=== PATIENT | male | born 1985 | race Caucasian/White ===

== ENCOUNTER 2021-04-22 09:07 | Emergency (ER) | payer BC ==
[~2021-04-22 09:07] MED LIST: ACULAR 0.5%3 ML OPH; ALBUTEROL0.09 MG/A2 INH; AUGMENTIN 875 M1 TAB PO; BACTRIM DS 8001 TA1 PO; CIPRODEX 0.3%-7.5 ML OT; CYCLOBENZAPRINE10 MG PO; FLEXERIL10 MG PO; HYDROCODONE BIT1 T11 PO; IBU600 MG PO; IBUPROFEN600 MG PO; NORCO 325 MG-51 TAB PO; OMEPRAZOLE20 M1 PO; TESSALON PERLE200 MG PO; TOBREX OPHTH S2.5 ML OPH; TRAMADOL HCL50 MG PO; ZANTAC150 MG PO; ZITHROMAX Z PA250 MG PO; ZOFRAN ODT4 MG SL; ZOFRAN4 MG PO; Zofran4 MG PO
[2021-04-22 09:57] LABS: HEMATOCRIT 46.4 % (42.0-52.0); MEAN CELL VOLUME 88.7 fl (80.0-94.0); MEAN CORPUSCULAR HGB 29.8 pg (27.0-31.0); MEAN CORPUSCULAR HGB CONC 33.6 g/dl (33.0-37.0); PLATELET COUNT AUTOMATED 305 10*3/uL (130-400); RED BLOOD COUNT 5.23 10*6/uL (4.50-5.90); RED CELL DISTRI WIDTH 12.4 % (0-14.5); WHITE BLOOD COUNT 11.1 10*3/uL (4.8-10.8)
[2021-04-22 10:14] LABS: ALBUMIN 5.1 gm/dl (3.1-4.5); ALKALINE PHOSPHATASE 69 U/L (45-117); BUN 26 mg/dl (7-24); CHLORIDE 102 mmol/L (98-107); CREATININE 1.26 mg/dL (0.70-1.30); LIPASE 54 U/L (73-393); POTASSIUM 4.3 mmol/L (3.5-5.1); SGOT/AST 29 IU/L (3-35); SGPT/ALT 60 U/L (12-78); SODIUM 133 mmol/L (136-145); TOTAL PROTEIN 9.2 gm/dL (6.4-8.2)
[2021-04-22 10:25] LABS: PLATELET SUFFICIENCY NORMAL (NORMAL); TOTAL CELLS COUNTED 100 #CELLS
[2021-04-22] MEDS ORDERED: ZOFRAN4 MG PO (12:49)
[2021-04-22] MEDS ORDERED: PEPCID20 MG PO (12:49)
[2021-04-26] MEDS ORDERED: METOCLOPRAMIDE H5 M1 PO (15:21)
== END 2021-04-22 13:11 | disposition home or self-care (01) ==
LOC: ED 09:07
PROVIDERS: Emergency Medicine
DX: R11.2 Nausea with vomiting, unspecified (principal); F17.200 Nicotine dependence, unspecified, uncomplicated

== ENCOUNTER 2021-04-22 21:01 | Emergency (ER) | payer BC ==
[~2021-04-22] VITALS: Ht 180.3 cm; Wt 63.5 kg
[~2021-04-22 21:01] MED LIST changes: +PEPCID20 MG PO
[2021-04-26] MEDS ORDERED: METOCLOPRAMIDE H5 M1 PO (15:21)
== END 2021-04-23 03:15 | disposition left against medical advice (07) ==
LOC: ED 21:01
DX: R11.2 Nausea with vomiting, unspecified (principal); Z20.822 Contact with and (suspected) exposure to COVID-19

== ENCOUNTER 2021-11-21 10:38 | Emergency (ER) | payer BC ==
[~2021-11-21] VITALS: Ht 180.3 cm; Wt 68.0 kg
[~2021-11-21 10:38] MED LIST changes: +METOCLOPRAMIDE H5 M1 PO
[2021-11-21] MEDS ORDERED: NAPROXEN250 MG PO (12:02)
[2021-11-21] MEDS ORDERED: TYLENOL325 M1 PO (12:02)
== END 2021-11-21 12:06 | disposition home or self-care (01) ==
LOC: ED 10:38
DX: S62.001A Unspecified fracture of navicular [scaphoid] bone of right wrist, initial encounter for closed fracture (principal); F17.210 Nicotine dependence, cigarettes, uncomplicated; Z79.899 Other long term (current) drug therapy; V00.131A Fall from skateboard, initial encounter; Y93.51 Activity, roller skating (inline) and skateboarding; Y92.89 Other specified places as the place of occurrence of the external cause; Y99.8 Other external cause status

== ENCOUNTER → 2021-12-01 | Outpatient (CLI) | payer BC ==
[~2021-12-01] MED LIST changes: +NAPROXEN250 MG PO; +TYLENOL325 M1 PO
== END | disposition home or self-care (01) ==
LOC: CT 10:55
PROVIDERS: ATTEND Orthopaedic Surgery
DX: S62.024A Nondisplaced fracture of middle third of navicular [scaphoid] bone of right wrist, initial encounter for closed fracture (principal); X58.XXXA Exposure to other specified factors, initial encounter; Y93.89 Activity, other specified; Y92.89 Other specified places as the place of occurrence of the external cause; Y99.8 Other external cause status

== ENCOUNTER → 2021-12-12 | Outpatient (CLI) | payer BC | END | disposition home or self-care (01) | LOC: ORTHO 01:18 | PROVIDERS: ATTEND Orthopaedic Surgery | DX: S62.024D Nondisplaced fracture of middle third of navicular [scaphoid] bone of right wrist, subsequent encounter for fracture with routine healing (principal); X58.XXXD Exposure to other specified factors, subsequent encounter ==

== ENCOUNTER → 2022-01-02 | Outpatient (CLI) | payer BC | END | disposition home or self-care (01) | LOC: ORTHO 01:53 | PROVIDERS: ATTEND Orthopaedic Surgery | DX: S62.024D Nondisplaced fracture of middle third of navicular [scaphoid] bone of right wrist, subsequent encounter for fracture with routine healing (principal); X58.XXXD Exposure to other specified factors, subsequent encounter ==

== ENCOUNTER → 2022-01-30 | Outpatient (CLI) | payer BC | END | disposition home or self-care (01) | LOC: ORTHO 00:42 | PROVIDERS: ATTEND Orthopaedic Surgery | DX: S62.024D Nondisplaced fracture of middle third of navicular [scaphoid] bone of right wrist, subsequent encounter for fracture with routine healing (principal); X58.XXXD Exposure to other specified factors, subsequent encounter ==

== ENCOUNTER → 2022-02-27 | Outpatient (CLI) | payer BC | END | disposition home or self-care (01) | LOC: ORTHO 11:32 → RAD 11:32 | PROVIDERS: ATTEND Orthopaedic Surgery | DX: S62.101A Fracture of unspecified carpal bone, right wrist, initial encounter for closed fracture (principal); X58.XXXA Exposure to other specified factors, initial encounter; Y93.89 Activity, other specified; Y92.89 Other specified places as the place of occurrence of the external cause; Y99.8 Other external cause status ==

== ENCOUNTER 2023-10-12 19:01 | Emergency (ER) | payer BC ==
[~2023-10-12] VITALS: Ht 180.3 cm; Wt 83.9 kg
[2023-10-12] MEDS ORDERED: Metoclopramide Hydrochloride 10 MG/2 ML AMP IV ONE (19:25)
[2023-10-12] MEDS ORDERED: SODIUM CHLORIDE 0.9% 1,000 ML IV ONE ×2 (19:25→22:37)
[2023-10-12] MEDS ORDERED: Pantoprazole Sodium 40 MG VIAL IV ONE (19:30)
[2023-10-12 20:00] LABS: BASO # 0.1 10*3/uL (0.0-0.1); BASO % 0.3 % (0.0-1.0); EOS % 0.1 % (1.0-4.0); HEMATOCRIT 50.2 % (42.0-52.0); LYMPH # 0.5 10*3/uL (1.3-4.4); LYMPH % 2.9 % (27.0-41.0); MEAN CELL VOLUME 89.6 fl (80.0-94.0); MEAN CORPUSCULAR HGB 30.9 pg (27.0-31.0); MEAN CORPUSCULAR HGB CONC 34.5 g/dl (33.0-37.0); MEAN PLATELET VOLUME 10.1 fl (9.6-12.3); MONO # 1.2 10*3/uL (0.1-1.0); MONO % 6.9 % (3.0-9.0); NEUT # 15.5 10*3/uL (2.3-7.9); NEUT % 89.3 % (47.0-73.0); PLATELET COUNT AUTOMATED 350 10*3/uL (130-400); RED CELL DISTRI WIDTH 13.1 % (0-14.5); WHITE BLOOD COUNT 17.3 10*3/uL (4.8-10.8)
[2023-10-12] MEDS ORDERED: Ondansetron Hydrochloride 4 MG/2 ML VIAL IV ONE (20:15)
[2023-10-12 20:18] LABS: ALKALINE PHOSPHATASE 108 U/L (46-116); BUN 17 mg/dl (9-23); CHLORIDE 105 mmol/L (98-107); LIPASE 29 U/L (12-53); POTASSIUM 4.3 mmol/L (3.4-5.1); SGPT/ALT 110 U/L (5-49); TOTAL PROTEIN 8.7 gm/dL (6.0-8.0)
[2023-10-12] MEDS ORDERED: HYDROmorphONE Hydrochloride 1 MG/ML SYR IV ONE (22:25)
[2023-10-13 00:12] LABS: BILIRUBIN Negative (Negative); BLOOD 1+ (Negative); CLARITY Clear (Clear); COLOR Yellow (Yellow); GLUCOSE Negative (Negative); KETONE 4+ (Negative); LEUKO ESTERASE Negative (Negative); NITRITE Negative (Negative); SPECIFIC GRAVITY >= 1.030 (1.001-1.030)
[2023-10-13 00:40] LABS: URINE AMPHETAMINES Negative (1000ng/ml); URINE BARBITURATES Negative (200ng/ml); URINE BENZODIAZEPINES Negative (200ng/ml); URINE CANNABINOIDS (THC) Positive (50ng/ml); URINE COCAINE Positive (300ng/ml); URINE METHADONE Negative (300ng/ml); URINE OPIATES Positive (300ng/ml); URINE PHENCYCLIDINE Negative (25ng/ml)
[2023-10-13] MEDS ORDERED: Promethazine Hydrochloride 25 MG/ML VIAL IM ONE (01:10)
[2023-10-13 01:19] LABS: YEAST TRACE
[2023-10-13] MEDS ORDERED: Ondansetron Hydrochloride 4 MG TAB SL ONE (01:50)
== END 2023-10-13 01:44 | disposition home or self-care (01) ==
LOC: ED 19:01
PROVIDERS: Emergency Medicine
DX: R11.2 Nausea with vomiting, unspecified (principal); R74.01 Elevation of levels of liver transaminase levels; K76.0 Fatty (change of) liver, not elsewhere classified; K29.70 Gastritis, unspecified, without bleeding; E87.1 Hypo-osmolality and hyponatremia; F17.210 Nicotine dependence, cigarettes, uncomplicated

== ENCOUNTER 2023-10-15 01:02 | Emergency (ER) | payer BC ==
[~2023-10-15] VITALS: Ht 180.3 cm; Wt 83.9 kg
[2023-10-15] MEDS ORDERED: Ondansetron Hydrochloride 4 MG/2 ML VIAL IV ONE (01:45)
[2023-10-15] MEDS ORDERED: Ketorolac Tromethamine 30 MG/ML VIAL IV ONE (01:45)
[2023-10-15] MEDS ORDERED: LORazepam 2 MG/ML VIAL IV ONE (01:45)
[2023-10-15] MEDS ORDERED: SODIUM CHLORIDE 0.9% 1,000 ML IV ONE (01:45)
[2023-10-15] MEDS ORDERED: Ondansetron4 MG PO (03:41)
== END 2023-10-15 03:57 | disposition home or self-care (01) ==
LOC: ED 01:02
DX: R11.2 Nausea with vomiting, unspecified (principal); R10.10 Upper abdominal pain, unspecified; F12.10 Cannabis abuse, uncomplicated; F17.210 Nicotine dependence, cigarettes, uncomplicated

== ENCOUNTER 2024-06-20 05:57 | Emergency (ER) | payer BC ==
[~2024-06-20] VITALS: Ht 180.3 cm; Wt 96.3 kg
[~2024-06-20 05:57] MED LIST changes: +Ondansetron4 MG PO
[2024-06-20] MEDS ORDERED: SODIUM CHLORIDE 0.9% 1,000 ML IV ONE (06:10)
[2024-06-20] MEDS ORDERED: Ondansetron Hydrochloride 4 MG/2 ML VIAL IV ONE ×3 (06:10→10:10)
[2024-06-20] MEDS ORDERED: diazePAM 10 MG/2 ML SYR IV ONE (06:10)
[2024-06-20 06:48] LABS: HEMATOCRIT 50.4 % (42.0-52.0); MEAN CELL VOLUME 97.7 fl (80.0-94.0); MEAN CORPUSCULAR HGB 32.8 pg (27.0-31.0); MEAN CORPUSCULAR HGB CONC 33.5 g/dl (33.0-37.0); MEAN PLATELET VOLUME 10.1 fl (9.6-12.3); PLATELET COUNT AUTOMATED 276 10*3/uL (130-400); RED BLOOD COUNT 5.16 10*6/uL (4.50-5.90); RED CELL DISTRI WIDTH 12.3 % (0-14.5); WHITE BLOOD COUNT 15.3 10*3/uL (4.8-10.8)
[2024-06-20 06:52] LABS: MANUAL DIFF REFLEX YES
[2024-06-20 07:11] LABS: ALKALINE PHOSPHATASE 80 U/L (46-116); BUN 13 mg/dl (9-23); CHLORIDE 103 mmol/L (98-107); LIPASE 30 U/L (12-53); POTASSIUM 3.9 mmol/L (3.4-5.1); SGPT/ALT 86 U/L (5-49); TOTAL PROTEIN 8.1 gm/dL (6.0-8.0)
[2024-06-20 07:28] LABS: PLATELET SUFFICIENCY NORMAL (NORMAL); POLYCHROMASIA SLIGHT; TOTAL CELLS COUNTED 100 #CELLS
[2024-06-20] MEDS ORDERED: FAMOTIDINE 50 ML IV ONE (07:35)
[2024-06-20] MEDS ORDERED: Ketorolac Tromethamine 15 MG/ML VIAL IV ONE (07:35)
[2024-06-20] MEDS ORDERED: Ondansetron4 MG PO (07:36)
[2024-06-20] MEDS ORDERED: Metoclopramide Hydrochloride 10 MG/2 ML VIAL IV ONE (09:05)
[2024-06-20] MEDS ORDERED: diphenhydrAMINE hydrochloride 50 MG/ML VIAL IV ONE (09:05)
[2024-06-20] MEDS ORDERED: Haloperidol Lactate 5 MG/ML AMP IM ONE (10:10)
== END 2024-06-20 10:44 | disposition home or self-care (01) ==
LOC: ED 05:57
PROVIDERS: Internal Medicine
DX: R11.2 Nausea with vomiting, unspecified (principal); R10.10 Upper abdominal pain, unspecified; F17.210 Nicotine dependence, cigarettes, uncomplicated

== ENCOUNTER 2024-07-15 15:32 | Emergency (ER) | payer BC ==
[~2024-07-15] VITALS: Ht 180.3 cm; Wt 90.7 kg
== END 2024-07-15 16:36 | disposition left against medical advice (07) ==
LOC: ED 15:32
DX: R11.2 Nausea with vomiting, unspecified (principal); Z53.21 Procedure and treatment not carried out due to patient leaving prior to being seen by health care provider

== ENCOUNTER 2024-10-17 11:29 | Emergency (ER) | payer BC ==
[~2024-10-17] VITALS: Ht 180.3 cm; Wt 77.1 kg
[2024-10-17] MEDS ORDERED: diphenhydrAMINE hydrochloride 50 MG/ML VIAL IV ONE (12:15)
[2024-10-17] MEDS ORDERED: Metoclopramide Hydrochloride 10 MG/2 ML VIAL IV ONE (12:15)
[2024-10-17 13:05] LABS: BUN 11 mg/dl (9-23)
[2024-10-17 13:08] LABS: ETHYL ALCOHOL < 3.0 mg/dl (<3)
[2024-10-17 13:33] LABS: BASO # 0.1 10*3/uL (0.0-0.1); BASO % 0.3 % (0.0-1.0); EOS # 0.0 10*3/uL (0.0-0.4); EOS % 0.1 % (1.0-4.0); MEAN CELL VOLUME 92.3 fl (80.0-94.0); MEAN CORPUSCULAR HGB 31.8 pg (27.0-31.0); MEAN PLATELET VOLUME 10.3 fl (9.6-12.3); MONO # 0.9 10*3/uL (0.1-1.0); MONO % 5.6 % (3.0-9.0); NEUT # 14.9 10*3/uL (2.3-7.9); NEUT % 89.4 % (47.0-73.0); NUCLEATED RED BLOOD CELL 0.0 % (0.0-0.0); NUCLEATED RED BLOOD CELL 0.0 10*3/uL (0.0-0.0); PLATELET COUNT AUTOMATED 365 10*3/uL (130-400); RED CELL DISTRI WIDTH 12.1 % (0-14.5)
[2024-10-17 13:48] LABS: BILIRUBIN 1+ (Negative); BLOOD Negative (Negative); CLARITY Cloudy (Clear); COLOR Dark Yellow (Yellow); KETONE 3+ (Negative); LEUKO ESTERASE Trace (Negative); NITRITE Negative (Negative); PH 6.0 (4.5-8.0); SPECIFIC GRAVITY >= 1.030 (1.001-1.030); UROBILINOGEN 1.0 E.U./dl (0.0-1.0)
[2024-10-17 13:56] LABS: URINE AMPHETAMINES Negative (1000ng/ml); URINE BARBITURATES Negative (200ng/ml); URINE BENZODIAZEPINES Negative (200ng/ml); URINE CANNABINOIDS (THC) Positive (50ng/ml); URINE COCAINE Positive (300ng/ml); URINE METHADONE Negative (300ng/ml); URINE OPIATES Negative (300ng/ml); URINE PHENCYCLIDINE Negative (25ng/ml)
[2024-10-17 14:07] LABS: MUCOUS 1+
[2024-10-17 14:08] LABS: BACTERIA 2+; CALCIUM OXALATE CRYSTALS 1+; EPITHELIAL CELLS 0-2
[2024-10-17] MEDS ORDERED: CIPRO500 MG PO (14:34)
== END 2024-10-17 14:40 | disposition home or self-care (01) ==
LOC: ED 11:29
PROVIDERS: Internal Medicine
DX: N39.0 Urinary tract infection, site not specified (principal); R11.2 Nausea with vomiting, unspecified; F12.10 Cannabis abuse, uncomplicated; F14.10 Cocaine abuse, uncomplicated; F17.200 Nicotine dependence, unspecified, uncomplicated

== ENCOUNTER 2024-12-02 12:47 | Emergency (ER) | payer BC ==
[~2024-12-02] VITALS: Ht 180.3 cm; Wt 86.2 kg
[~2024-12-02 12:47] MED LIST changes: +CIPRO500 MG PO
[2024-12-02] MEDS ORDERED: diphenhydrAMINE hydrochloride 50 MG/ML VIAL IV ONE (14:20)
[2024-12-02] MEDS ORDERED: Ondansetron Hydrochloride 4 MG/2 ML VIAL IV ONE ×2 (14:20→17:25)
[2024-12-02] MEDS ORDERED: Metoclopramide Hydrochloride 10 MG/2 ML VIAL IV ONE (14:20)
[2024-12-02] MEDS ORDERED: SODIUM CHLORIDE 0.9% 1,000 ML IV ONE (14:20)
[2024-12-02 15:20] LABS: MEAN CELL VOLUME 93.4 fl (80.0-94.0); MEAN CORPUSCULAR HGB 31.7 pg (27.0-31.0); MEAN PLATELET VOLUME 10.2 fl (9.6-12.3); NUCLEATED RED BLOOD CELL 0.0 % (0.0-0.0); NUCLEATED RED BLOOD CELL 0.0 10*3/uL (0.0-0.0); PLATELET COUNT AUTOMATED 370 10*3/uL (130-400); RED CELL DISTRI WIDTH 12.1 % (0-14.5)
[2024-12-02 15:26] LABS: MANUAL DIFF REFLEX YES
[2024-12-02 15:42] LABS: BUN 13.0 mg/dl (9-23); SGPT/ALT 132.0 U/L (5-49)
[2024-12-02 15:49] LABS: PLATELET SUFFICIENCY NORMAL (NORMAL)
[2024-12-02] MEDS ORDERED: Ondansetron4 MG PO (18:50)
[2024-12-02] MEDS ORDERED: PERCOCET 5-3251 EACH PO (18:50)
[2024-12-02] MEDS ORDERED: Acetaminophen/Oxycodone 5 MG/325 MG TABLET PO ONE (18:55)
== END 2024-12-02 19:18 | disposition home or self-care (01) ==
LOC: ED 12:47
PROVIDERS: Emergency Medicine
DX: R11.15 Cyclical vomiting syndrome unrelated to migraine (principal); F12.90 Cannabis use, unspecified, uncomplicated; N28.1 Cyst of kidney, acquired; R10.84 Generalized abdominal pain; F17.210 Nicotine dependence, cigarettes, uncomplicated